=== PATIENT | female | born 1950 | race Two or more races ===

== ENCOUNTER 2016-10-19 18:30 | Emergency (ER) | payer MEDICARE, MEDICAID ==
[~2016-10-19] VITALS: Ht 167.6 cm; Wt 99.8 kg
[2016-10-20 08:45] VITALS: BP 159/106
== END 2016-10-20 10:31 | disposition home or self-care (01) ==
LOC: EDBD 18:30 → ER 18:34
DX: M25.552 Pain in left hip (principal); M54.32 Sciatica, left side; R51 Headache; Z88.0 Allergy status to penicillin
CPT/HCPCS: 70450; 72125; 73562; 93005